=== PATIENT | male | born 1995 | race Two or more races ===

== ENCOUNTER 2018-03-12 14:21 | Emergency (ER) | payer SELFPAY ==
[~2018-03-12] VITALS: Ht 180.3 cm; Wt 120.2 kg
[2018-03-12] MEDS ORDERED: SODIUM CHLORIDE 0.9% 1,000 ML IV ONE ×2 (14:41)
[2018-03-12] MEDS ORDERED: ACTIVATED CHARCOAL 50 GM/240 ML SOL PO ONE (14:45)
[2018-03-12 15:10] LABS: Basophils # (auto) 0.1 uL; Basophils % (auto) 0.6 % (0.0-2.0); Eosinophils # (auto) 0.1 uL; Hematocrit 44.5 % (41.0-53.0); Hemoglobin 14.9 g/dL (13.5-17.5); Lymphocytes # (auto) 1.7 uL; Lymphocytes % (auto) 15.7 % (10.0-50.0); Mean Corpuscular Hemoglobin 30.5 pg (28.0-32.0); Mean Corpuscular Hgb Conc. 33.5 g/dL (32.0-36.0); Monocytes # (auto) 0.6 uL; Neutrophils # (auto) 8.6 uL; Neutrophils % (auto) 77.7 % (37.0-80.0); Platelet Count (auto) 220 10^3/uL (140-450); Red Cell Distribution Width 13.3 % (11.8-14.3); White Blood Cell 11.1 10^3/uL (4.4-10.8)
[2018-03-12 15:31] LABS: Alanine Aminotransferase 26 U/L (16-61); Albumin 3.7 g/dL (3.4-5.0); Alkaline Phosphatase 52 U/L (45-117); Anion Gap 7 (5-15); Aspartate Aminotransferase 11 U/L (15-37); Bilirubin, Total 0.7 mg/dL (0.2-1.0); Blood Alcohol < 3.0 mg/dL (0-5); Blood Urea Nitrogen 10 mg/dL (7-18); Calcium 8.3 mg/dL (8.5-10.1); Carbon Dioxide 23 mmol/L (21-32); Chloride 111 mmol/L (98-107); GFR African American 137 mL/min; GFR Non-African American 113 mL/min; Glucose 126 mg/dL (74-106); Potassium 3.5 mmol/L (3.5-5.1); Sodium 141 mmol/L (136-145); Total Protein 7.1 g/dL (6.4-8.2)
[2018-03-12 16:12] LABS: Salicylate 1.9 mg/dL (2.8-20.0)
[2018-03-12 16:14] LABS: Acetaminophen < 2.0 ug/mL (10-30)
[2018-03-12 18:17] LABS: Urine Bacteria FEW /hpf (None Seen); Urine Blood Negative /uL (Negative); Urine Mucus FEW (None Seen); Urine Specific Gravity 1.011 (1.001-1.035); Urine WBC 2 /hpf (0 - 3)
[2018-03-12 18:33] LABS: Alcohol, Urine < 3.0 mg/dL (0-5); Amphetamine Screen, Urine NEGATIVE (NEGATIVE); Barbiturate Scree,Urine NEGATIVE (NEGATIVE); Benzodiazephine Screen, Urine NEGATIVE (NEGATIVE); Cannabinoid Screen, Urine POSITIVE (NEGATIVE); Cocaine Screen, Urine NEGATIVE (NEGATIVE); Opiate Scree,Urine NEGATIVE (NEGATIVE); Phencyclidine Screen, Urine NEGATIVE (NEGATIVE)
[2018-03-13 00:21] VITALS: BP 137/70
== END 2018-03-12 21:37 | disposition home or self-care (01) ==
LOC: EDBD 14:21 → ER 14:27
DX: T44.8X2A Poisoning by centrally-acting and adrenergic-neuron-blocking agents, intentional self-harm, initial encounter (principal); R11.2 Nausea with vomiting, unspecified; R10.9 Unspecified abdominal pain; F32.9 Major depressive disorder, single episode, unspecified; F41.9 Anxiety disorder, unspecified; F12.10 Cannabis abuse, uncomplicated; Y92.89 Other specified places as the place of occurrence of the external cause
CPT/HCPCS: 36415; 71045; 80053; 80307; 80320; 80329; 81001; 85025; 96360; 96361; 99285; J7030; 93005

== ENCOUNTER 2018-09-06 02:55 | Emergency (ER) | payer SELFPAY ==
[~2018-09-06] VITALS: Ht 180.3 cm; Wt 104.3 kg
[2018-09-06 03:15] VITALS: BP 127/70
[2018-09-06] MEDS ORDERED: IBUPROFEN 800 MG TAB PO ONE (05:30)
[2018-09-06] MEDS ORDERED: ACETAMINOPHEN 500 MG TAB PO ONE (05:30)
== END 2018-09-06 06:09 | disposition home or self-care (01) ==
LOC: ER 03:01
DX: S83.8X1A Sprain of other specified parts of right knee, initial encounter (principal); X50.1XXA Overexertion from prolonged static or awkward postures, initial encounter; Y93.89 Activity, other specified; Y99.8 Other external cause status; Y92.89 Other specified places as the place of occurrence of the external cause
CPT/HCPCS: 73562

== ENCOUNTER 2019-01-12 19:03 | Emergency (ER) | payer SELFPAY ==
[~2019-01-12] VITALS: Ht 180.3 cm; Wt 113.4 kg
[2019-01-12 19:56] VITALS: BP 127/77
[2019-01-12] MEDS ORDERED: LIDOCAINE 1% HCL (LOCAL ANESTH.) INJ 20ML MDV IJ ONE (20:00)
== END 2019-01-12 20:41 | disposition home or self-care (01) ==
LOC: ER 19:09
DX: S61.201A Unspecified open wound of left index finger without damage to nail, initial encounter (principal); S61.002A Unspecified open wound of left thumb without damage to nail, initial encounter; F12.10 Cannabis abuse, uncomplicated; X58.XXXA Exposure to other specified factors, initial encounter; Y93.89 Activity, other specified; Y99.8 Other external cause status; Y92.89 Other specified places as the place of occurrence of the external cause
CPT/HCPCS: J2001